=== PATIENT | male | born 1955 | race Caucasian/White ===

== ENCOUNTER 2022-10-19 19:46 | Emergency (ER) | payer MEDICARE, SELFPAY ==
[2022-10-19] VITALS (8 sets, daily range): BP systolic 141–189; BP diastolic 87–98; PULSE 92–99; RESP 16–18; TEMP 37.1; O2SAT 95–100; BMI 36.6
--- NOTE | 2022-10-19 20:01 | CT_ITS ---
The [address] [address] Patient Name: JORGE LUIS ANDUJAR MRN: [id number] date: 1955 Sex: M Assigned Patient Location: ED.MAIN Current Patient Location: Accession/Order Number: [id number] Exam Date: 10/19/2022 22:00 Report Date: 10/19/2022 22:29 At the request of: ANGELIKA TAPIA Procedure: CT abdomen pelvis w con EXAM: CT abdomen pelvis w con HISTORY: Diverticulitis COMPARISON: 10/25/2021 TECHNIQUE: Axial CT imaging was performed through the abdomen and pelvis with intravenous contrast. Multiplanar reformats were performed. Dose reduction techniques were achieved by using automated exposure control and/or adjustment of mA and/or kV according to patient size and/or use of iterative reconstruction technique. FINDINGS: Lung bases: Lung bases are clear. No pleural effusion. GI upper: Unremarkable. Liver: Normal size and contour. Gallbladder: Gallbladder is contracted. No calculi are visualized. Biliary system: No intra or extrahepatic biliary ductal dilatation. Pancreas: Unremarkable. Spleen: Calcifications of the spleen are likely related to chronic granulomatous disease. Normal size. Adrenal glands: Normal adrenal glands. Kidneys/ureters: Normal contours. No hydronephrosis or visible mass. No nephrolithiasis. Both ureters are normal in caliber and course to the bladder. Vessels: No aneurysmal dilatation of the aorta. Atherosclerotic disease is noted. Retroperitoneum: No lymphadenopathy. Small bowel: No wall thickening or dilatation. Colon: Descending and sigmoid colon diverticuli are noted. There is circumferential wall thickening of the distal sigmoid with mild adjacent fat stranding. Appendix: Appendix is identified with normal appearance. Peritoneal cavity: No free fluid or pneumoperitoneum. Lower : Unremarkable. 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 Soft tissues: No acute finding. Additional findings: None. IMPRESSION: Left colonic diverticulosis with evidence for uncomplicated distal sigmoid diverticulitis. Inflammatory changes are not as prominent as seen on the prior study of one year ago. Electronically authenticated by: Demario CUMMINGS Date: 10/19/2022 22:29
--- NOTE | 2022-10-19 21:00 | ED_ITS ---
Documented by User: MIRA Linton 10/19/22 21:55 HPI - Abdominal Pain General Chief Complaint: Abdominal Pain Stated Complaint: DIVERTICULITIS Time Seen by Provider: 10/19/22 19:58 Source: patient Mode of arrival: walk-in History of Present Illness HPI narrative: patient is a 67-year-old male who presents to the emergency department for the evaluation of possible diverticulitis. He has had diverticulitis in the past similarly. He states that his doctor doesn't treat him appropriately and he continues to have issues with diverticulitis when he comes to the emergency department he gets the appropriate antibiotics. He has had no fevers, chills, vomiting. He has had occasional minimal pain in the left lower quadrant. No medications taken prior to arrival. He has no significant pain at this time. He states he has had loose stools for the last several days with mucus, no blood in his stool. He has never had surgery before for diverticulitis. He had a colonoscopy previously that was unremarkable. Related Data Previous Rx's Medication Instructions Recorded ciprofloxacin HCl 500 mg tablet 500 mg PO BID #14 tabs 10/19/22 (Cipro) metronidazole 500 mg tablet 500 mg PO TID #21 tabs 10/19/22 nabumetone 750 mg tablet 750 mg PO BID #14 tabs 10/19/22 ondansetron 4 mg disintegrating 4 mg PO Q6H PRN nausea and 10/19/22 tablet vomiting #20 tabs Allergies Allergy/AdvReac Type Severity Reaction Status Date / Time Penicillins Allergy Mild Rash Verified 10/19/22 19:58 Review of Systems ROS Constitutional Denies: fever or chills Ears, nose, mouth, and throat Denies: throat pain or neck pain Cardiovascular Denies: chest pain Respiratory Denies: shortness of breath or cough Gastrointestinal Reports: abdominal pain and diarrhea; Denies: nausea or vomiting Genitourinary Denies: painful urination Musculoskeletal Denies: back pain Integumentary/Breast Denies: rash Exam Narrative Exam Narrative: Gen.: Awake, alert, in no distress Head: Normocephalic, atraumatic ENT: Moist mucous membranes Respiratory: No respiratory distress, lungs clear bilaterally Cardio: Regular rate and rhythm Gastrointestinal: Abdomen is soft, nondistended and nontender to palpation Extremities: Moves extremities equally, no pedal edema Psych: Normal mood and affect Neuro: No focal neuro deficit Skin: Warm, dry, intact Constitutional Vital Signs - 24 hr 10/19/22 19:52 10/19/22 21:11 Temperature 98.7 F Pulse Rate [Monitor] 99 H 92 H Respiratory Rate 16 18 Blood Pressure [Left Arm] 189/98 H 154/87 H Pulse Oximetry 97 99 Oxygen Delivery Method Room Air Room Air Course Vital Signs Vital signs: Vital Signs Temperature 98.7 F 10/19/22 19:52 Pulse Rate 99 H 10/19/22 19:52 Respiratory Rate 16 10/19/22 19:52 Blood Pressure 189/98 H 10/19/22 19:52 Pulse Oximetry 97 10/19/22 19:52 Oxygen Delivery Method Room Air 10/19/22 19:52 Temperature 98.7 F 10/19/22 19:52 Pulse Rate 92 H 10/19/22 21:11 Respiratory Rate 18 10/19/22 21:11 Blood Pressure 154/87 H 10/19/22 21:11 Pulse Oximetry 99 10/19/22 21:11 Oxygen Delivery Method Room Air 10/19/22 21:11 MDM - Abdominal Pain MDM Narrative Medical decision making narrative: 2154: patient declined medication for pain or nausea in the Emergency Room. He was treated with IV fluids. Lab studies, urine specimen were ordered as well as a CT of the abdomen and pelvis with IV contrast given the length of time that the patient has had issues with suspected diverticulitis. His vitals are stable in the Emergency Room with no fevers or tachycardia. CT and the remainder of the labs are pending at this time. Case is turned over to attending physician at this time for disposition. Medical Records Attestation: I reviewed the patient's medical records. Lab Data Attestation: I reviewed the patient's lab results. Labs: Lab Results 10/19/22 Range/Units 20:50 WBC 10.1 (4.0-11.0) 10^3/uL RBC 5.54 (4.70-6.10) 10^6/uL Hgb 14.9 (14.0-18.0) g/dL Hct 46.1 (42.0-54.0) % MCV 83.2 (80.0-94.0) fL MCH 26.9 (25.9-34.0) pg MCHC 32.3 (29.9-35.2) g/dL RDW 13.2 (11.0-15.0) % Plt Count 216 (150-450) 10^3/uL MPV 10.3 (9.5-13.5) fL Neut % (Auto) 74.4 (43.0-75.0) % Lymph % (Auto) 11.3 L (20.5-60.0) % [place] % (Auto) 8.8 (1.7-12.0) % Eos % (Auto) 4.0 (0.9-7.0) % Baso % (Auto) 0.8 (0.2-2.0) % Neut # (Auto) 7.5 H (1.4-6.5) 10^3/uL Lymph # (Auto) 1.1 L (1.2-3.8) 10^3/uL [place] # (Auto) 0.9 H (0.3-0.8) 10^3/uL Eos # (Auto) 0.4 (0.0-0.7) 10^3/uL Baso # (Auto) 0.1 (0.0-0.1) 10^3/uL Abs Immat Gran (auto) 0.07 H (0.00-0.03) 10^3/uL Imm/Tot Granulo (auto) 0.7 H (0.0-0.5) % Sodium 138 (136-145) mmol/L Potassium 3.9 (3.5-5.1) mmol/L Chloride 103 (98-107) mmol/L Carbon Dioxide 28.2 (21.0-32.0) mmol/L Anion Gap 10.7 BUN 18.0 (7.0-18.0) mg/dL Creatinine 1.33 H (0.70-1.30) mg/dL Est GFR ( Amer) >60 (>=60) Est GFR (Non-Af Amer) 54 L (>=60) BUN/Creatinine Ratio 13.5 Glucose 144 H (74-106) mg/dL Lactate 1.0 (0.4-2.0) mmol/L Calcium 9.3 (8.5-10.1) mg/dL Total Bilirubin 0.5 (0.2-1.0) mg/dL AST 16 (15-37) U/L ALT 28 (16-63) U/L Alkaline Phosphatase 72 (46-116) U/L Total Protein 7.4 (6.4-8.2) g/dL Albumin 3.8 (3.4-5.0) g/dL Globulin 3.6 g/dL Albumin/Globulin Ratio 1.1 Discharge Plan Discharge Chief Complaint: Abdominal Pain Clinical Impression: Diverticulitis Patient Disposition: Home, Self-Care Time of Disposition Decision: 22:40 Prescriptions / Home Meds: New ciprofloxacin HCl [Cipro] 500 mg tablet 500 mg PO BID Qty: 14 0RF metronidazole 500 mg tablet 500 mg PO TID Qty: 21 0RF nabumetone 750 mg tablet 750 mg PO BID Qty: 14 0RF ondansetron 4 mg tablet,disintegrating 4 mg PO Q6H PRN (Reason: nausea and vomiting) Qty: 20 0RF Instructions: Diverticulitis (ED) Stand Alone Forms: Portal Instructions Referrals: JOSE AMAYA [Primary Care Provider] - 1 week Documented by User: Taco Zaldivar 10/19/22 22:45 HPI - Abdominal Pain General Chief Complaint: Abdominal Pain Stated Complaint: DIVERTICULITIS Time Seen by Provider: 10/19/22 19:58 Related Data Previous Rx's Medication Instructions Recorded ciprofloxacin HCl 500 mg tablet 500 mg PO BID #14 tabs 10/19/22 (Cipro) metronidazole 500 mg tablet 500 mg PO TID #21 tabs 10/19/22 nabumetone 750 mg tablet 750 mg PO BID #14 tabs 10/19/22 ondansetron 4 mg disintegrating 4 mg PO Q6H PRN nausea and 10/19/22 tablet vomiting #20 tabs Allergies Allergy/AdvReac Type Severity Reaction Status Date / Time Penicillins Allergy Mild Rash Verified 10/19/22 19:58 Exam Constitutional Vital Signs - 24 hr 10/19/22 19:52 10/19/22 21:11 Temperature 98.7 F Pulse Rate [Monitor] 99 H 92 H Respiratory Rate 16 18 Blood Pressure [Left Arm] 189/98 H 154/87 H Pulse Oximetry 97 99 Oxygen Delivery Method Room Air Room Air Course Vital Signs Vital signs: Vital Signs Temperature 98.7 F 10/19/22 19:52 Pulse Rate 99 H 10/19/22 19:52 Respiratory Rate 16 10/19/22 19:52 Blood Pressure 189/98 H 10/19/22 19:52 Pulse Oximetry 97 10/19/22 19:52 Oxygen Delivery Method Room Air 10/19/22 19:52 Temperature 98.7 F 10/19/22 19:52 Pulse Rate 92 H 10/19/22 21:11 Respiratory Rate 18 10/19/22 21:11 Blood Pressure 154/87 H 10/19/22 21:11 Pulse Oximetry 99 10/19/22 21:11 Oxygen Delivery Method Room Air 10/19/22 21:11 MDM - Abdominal Pain MDM Narrative Medical decision making narrative: 2154: patient declined medication for pain or nausea in the Emergency Room. He was treated with IV fluids. Lab studies, urine specimen were ordered as well as a CT of the abdomen and pelvis with IV contrast given the length of time that the patient has had issues with suspected diverticulitis. His vitals are stable in the Emergency Room with no fevers or tachycardia. CT and the remainder of the labs are pending at this time. Case is turned over to attending physician at this time for disposition. attending physician note - CT revealed diverticulitis of the distal sigmoid. Normal WBC and negative Lactate. Unremarkable CMP. Patient given cipro and flagyl in the ED and discharged home with prescriptions for cipro, flagyl, zofran and relafen. Patient instructed to return to the ED if she worsens but can follow up with her PCP as needed if improved. Lab Data Labs: Lab Results 10/19/22 Range/Units 20:50 WBC 10.1 (4.0-11.0) 10^3/uL RBC 5.54 (4.70-6.10) 10^6/uL Hgb 14.9 (14.0-18.0) g/dL Hct 46.1 (42.0-54.0) % MCV 83.2 (80.0-94.0) fL MCH 26.9 (25.9-34.0) pg MCHC 32.3 (29.9-35.2) g/dL RDW 13.2 (11.0-15.0) % Plt Count 216 (150-450) 10^3/uL MPV 10.3 (9.5-13.5) fL Neut % (Auto) 74.4 (43.0-75.0) % Lymph % (Auto) 11.3 L (20.5-60.0) % [place] % (Auto) 8.8 (1.7-12.0) % Eos % (Auto) 4.0 (0.9-7.0) % Baso % (Auto) 0.8 (0.2-2.0) % Neut # (Auto) 7.5 H (1.4-6.5) 10^3/uL Lymph # (Auto) 1.1 L (1.2-3.8) 10^3/uL [place] # (Auto) 0.9 H (0.3-0.8) 10^3/uL Eos # (Auto) 0.4 (0.0-0.7) 10^3/uL Baso # (Auto) 0.1 (0.0-0.1) 10^3/uL Abs Immat Gran (auto) 0.07 H (0.00-0.03) 10^3/uL Imm/Tot Granulo (auto) 0.7 H (0.0-0.5) % Sodium 138 (136-145) mmol/L Potassium 3.9 (3.5-5.1) mmol/L Chloride 103 (98-107) mmol/L Carbon Dioxide 28.2 (21.0-32.0) mmol/L Anion Gap 10.7 BUN 18.0 (7.0-18.0) mg/dL Creatinine 1.33 H (0.70-1.30) mg/dL Est GFR ( Amer) >60 (>=60) Est GFR (Non-Af Amer) 54 L (>=60) BUN/Creatinine Ratio 13.5 Glucose 144 H (74-106) mg/dL Lactate 1.0 (0.4-2.0) mmol/L Calcium 9.3 (8.5-10.1) mg/dL Total Bilirubin 0.5 (0.2-1.0) mg/dL AST 16 (15-37) U/L ALT 28 (16-63) U/L Alkaline Phosphatase 72 (46-116) U/L Total Protein 7.4 (6.4-8.2) g/dL Albumin 3.8 (3.4-5.0) g/dL Globulin 3.6 g/dL Albumin/Globulin Ratio 1.[address] abd/pelvis: Attestation: I have reviewed the pertinent imaging results. Radiologist's impression: Patient Name: JORGE LUIS ANDUJAR MRN: [id number] date: 1955 Sex: M Assigned Patient Location: ED.MAIN Current Patient Location: ER Accession/Order Number: [id number] Exam Date: 10/19/2022 22:00 Report Date: 10/19/2022 22:29 At the request of: ANGELIKA TAPIA Procedure: CT abdomen pelvis w con EXAM: CT abdomen pelvis w con HISTORY: Diverticulitis COMPARISON: 10/25/2021 TECHNIQUE: Axial CT imaging was performed through the abdomen and pelvis with intravenous contrast. Multiplanar reformats were performed. Dose reduction techniques were achieved by using automated exposure control and/or adjustment of mA and/or kV according to patient size and/or use of iterative reconstruction technique. FINDINGS: Lung bases: Lung bases are clear. No pleural effusion. GI upper: Unremarkable. Liver: Normal size and contour. Gallbladder: Gallbladder is contracted. No calculi are visualized. Biliary system: No intra or extrahepatic biliary ductal dilatation. Pancreas: Unremarkable. Spleen: Calcifications of the spleen are likely related to chronic granulomatous disease. Normal size. Adrenal glands: Normal adrenal glands. Kidneys/ureters: Normal contours. No hydronephrosis or visible mass. No nephrolithiasis. Both ureters are normal in caliber and course to the bladder. Vessels: No aneurysmal dilatation of the aorta. Atherosclerotic disease is noted. Retroperitoneum: No lymphadenopathy. Small bowel: No wall thickening or dilatation. Colon: Descending and sigmoid colon diverticuli are noted. There is circumferential wall thickening of the distal sigmoid with mild adjacent fat stranding. Appendix: Appendix is identified with normal appearance. Peritoneal cavity: No free fluid or pneumoperitoneum. Lower : Unremarkable. 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 Soft tissues: No acute finding. Additional findings: None. IMPRESSION: Left colonic diverticulosis with evidence for uncomplicated distal sigmoid diverticulitis. Inflammatory changes are not as prominent as seen on the prior study of one year ago. Electronically authenticated by: Demario CUMMINGS Date: 10/19/2022 22:29 Discharge Plan Discharge Chief Complaint: Abdominal Pain Clinical Impression: Diverticulitis Patient Disposition: Home, Self-Care Time of Disposition Decision: 22:40 Prescriptions / Home Meds: New ciprofloxacin HCl [Cipro] 500 mg tablet 500 mg PO BID Qty: 14 0RF metronidazole 500 mg tablet 500 mg PO TID Qty: 21 0RF nabumetone 750 mg tablet 750 mg PO BID Qty: 14 0RF ondansetron 4 mg tablet,disintegrating 4 mg PO Q6H PRN (Reason: nausea and vomiting) Qty: 20 0RF Instructions: Diverticulitis (ED) Stand Alone Forms: Portal Instructions Referrals: JOSE AMAYA [Primary Care Provider] - 1 week
[2022-10-19] MEDS: 0.9 % SODIUM CHLORIDE 1,000 ML 999 ML IV (21:01)
[2022-10-19 21:04] LABS: Basophils Absolute Auto 0.1 10^3/uL (0.0-0.1); Basophils Percent Auto 0.8 % (0.2-2.0); Eosinophils Absolute Auto 0.4 10^3/uL (0.0-0.7); Hematocrit 46.1 % (42.0-54.0); Hemoglobin 14.9 g/dL (14.0-18.0); Immature Granulocytes Abs Auto 0.07 10^3/uL (0.00-0.03); Immature Granulocytes Pct Auto 0.7 % (0.0-0.5); Lymphocytes Absolute Auto 1.1 10^3/uL (1.2-3.8); Lymphocytes Percent Auto 11.3 % (20.5-60.0); Mean Corpuscular HGB Conc 32.3 g/dL (29.9-35.2); Mean Corpuscular Hemoglobin 26.9 pg (25.9-34.0); Mean Corpuscular Volume 83.2 fL (80.0-94.0); Mean Platelet Volume 10.3 fL (9.5-13.5); Monocytes Absolute Auto 0.9 10^3/uL (0.3-0.8); Monocytes Percent Auto 8.8 % (1.7-12.0); Neutrophils Absolute Auto 7.5 10^3/uL (1.4-6.5); Neutrophils Percent Auto 74.4 % (43.0-75.0); Platelet Count 216 10^3/uL (150-450); Red Blood Count 5.54 10^6/uL (4.70-6.10); Red Cell Distribution Width 13.2 % (11.0-15.0); White Blood Count 10.1 10^3/uL (4.0-11.0)
[2022-10-19 21:22] LABS: Alanine Aminotransferase 28 U/L (16-63); Albumin Globulin Ratio 1.1; Albumin Level 3.8 g/dL (3.4-5.0); Alkaline Phosphatase 72 U/L (46-116); Anion Gap 10.7; Aspartate Amino Transferase 16 U/L (15-37); BUN Creatinine Ratio 13.5; Bilirubin Total 0.5 mg/dL (0.2-1.0); Calcium 9.3 mg/dL (8.5-10.1); Carbon Dioxide 28.2 mmol/L (21.0-32.0); Chloride 103 mmol/L (98-107); Estimated GFR (African America >60 (>=60); Estimated GFR (Non-African Ame 54 (>=60); Globulin 3.6 g/dL; Glucose 144 mg/dL (74-106); Potassium 3.9 mmol/L (3.5-5.1); Sodium 138 mmol/L (136-145); Total Protein 7.4 g/dL (6.4-8.2)
[2022-10-19] MEDS: CIPROFLOXACIN HCL 500 MG TABLET PO (22:56)
[2022-10-19] MEDS: METRONIDAZOLE 250 MG TABLET 500 MG PO (22:56)
== END 2022-10-19 23:05 | disposition home or self-care (01) ==
PROVIDERS: Physician Assistant; Emergency Provider Emergency Medicine; PCP Family Medicine
DX: K57.32 Diverticulitis of large intestine without perforation or abscess without bleeding (principal)
CPT/HCPCS: 36415; 74177; 80053; 81003; 83605; 85025; 99284; Q9967